=== PATIENT | female | born 1935 | race Caucasian/White ===

== ENCOUNTER 2017-08-01 07:52 | Day surgery (SDC) | payer MEDICARE, BC ==
[2017-08-01] MEDS ORDERED: PROPOFOL 10 MG/ML VIAL IV ONE (07:53)
[2017-08-01] MEDS ORDERED: LIDOCAINE 1% MDV (10MG/ML) 20ML VIAL SQ ONE (07:53)
--- NOTE | 2017-08-04 09:51 | Operative Note ---
DATE OF SURGERY: 08/01/2017 OPERATION: ESOPHAGOGASTRODUODENOSCOPY with Savary guidewire dilatation. INDICATION: Recurrent dysphagia. 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 She did have dilatation in the past, approximately 2 years ago, which she claimed offered significant improvement in her dysphagia. For this reason, a repeat endoscopy is being performed. ANESTHESIA: Intravenous sedation was administered by the Department of Anesthesiology and included Diprivan titrated to effect. PROCEDURE: Following informed consent from this alert individual, including a discussion of the risks and benefits of the procedure and an opportunity for the patient to ask questions, the patient was in the left lateral decubitus position. The Olympus [id number] video endoscope was inserted into the esophagus without resistance. The esophageal mucosa throughout appeared normal. The luminal diameter was fairly normal as well. The squamocolumnar junction was smooth and well defined but it was approximately 2 cm above the diaphragmatic hiatus, suggesting a small hiatal hernia. The stomach was entered and found to be unremarkable. The pylorus was patent. The duodenal bulb, sweep and descending duodenum were examined in a serial fashion and found to be normal. The endoscope was then drawn back into the body of the stomach. Retroflexion accomplished following air insufflation again revealed hiatal hernia. The endoscope was straightened and withdrawn back to the esophagus. Again, no mucosal abnormalities were detected. The endoscope was advanced into the antrum where a Savary guidewire was placed. A #15 Savary dilator was advanced over the guidewire with slight resistance in the cervical region of the esophagus only. Endoscopic reevaluation failed to demonstrate any trauma. The endoscope was then withdrawn. The patient tolerated the procedure well and was returned to the recovery area in stable condition. IMPRESSION: 1. A 2 cm hiatal hernia. 2. Status post dilation with #15 Savary dilator with minimal resistance in the cervical esophageal region only. RECOMMENDATION: The patient will be following up with Dr. Yusuf. I will be happy to see her again in the future as needed. CC: Zuleima ADAMS
== END 2017-08-01 09:47 | disposition home or self-care (01) ==
LOC: HOP 07:52
PROVIDERS: ATTEND Internal Medicine Gastroenterology
DX: R13.10 Dysphagia, unspecified (principal); K44.9 Diaphragmatic hernia without obstruction or gangrene

== ENCOUNTER 2018-12-17 08:45 | Emergency (ER) | payer MEDICARE, BC ==
[2018-12-17] MEDS ORDERED: 0.9 % SODIUM CHLORIDE 1,000 ML BAG IV ONE (08:51)
[2018-12-17] MEDS ORDERED: ONDANSETRON HCL IV 4 MG/2 ML VIAL IV ONE (08:51)
--- NOTE | 2018-12-17 09:02 | Emergency Department Record ---
History of Present Illness - General Chief complaint: Nausea, Vomiting, Diarrhea Stated complaint: DIARRHEA/NASEAUS Time Seen by Provider: 12/17/18 08:49 Source: Patient, Family Mode of Arrival: Ambulatory Limitations: No limitations - History of Present Illness Initial comments: 83 yo female presents with abrupt onset of diarrhea at 3am. She reports n umerous watery, non bloody bowel movements since then. No fevers. She reports feeling chills. She has some associated nausea without vomiting. No recent illness. No recent antibiotics. No known exposures to others that are having similar symptoms. She lives alone. She reports similar symptoms with UTI in the past. She has been having some frequency with urination. PCP Hankenson. KLEIN complaint: Diarrhea, Nausea, Vomiting -: Hour(s) Description of Vomiting: Watery Description of Diarrhea: Water Location: Diffuse (mild, crampy) Radiation: Other (diffuse) Consistency: Constant Improves with: None Worsens with: Eating Context: Other Associated Symptoms: Loss of appetite, Other (chilled) - Related Data Allergies Allergy/AdvReac Type Severity Reaction Status Date / Time meperidine HCl [From Demerol] Allergy Severe NAUSEA AND Verified 12/17/18 08:48 VOMITING potassium clavulanate Allergy Severe DIARRHEA Verified 12/17/18 08:48 [From Augmentin] amoxicillin trihydrate AdvReac Intermediate DIARRHEA Verified 12/17/18 08:48 [From Augmentin] Review of Systems Constitutional: Reports: Chills, Weakness. Denies: Fever, Malaise Eyes: Denies: Eye discharge ENT: Denies: Congestion, Throat pain Respiratory: Denies: Cough, Dyspnea, Hemoptysis, Wheezes Cardiovascular: Denies: Chest pain, Palpitations, Syncope Endocrine: Denies: Fatigue Gastrointestinal: Reports: Abdominal pain (cramps), Diarrhea, Nausea. Denies: Constipation, Hematemesis, Hematochezia, Melena, Vomiting Genitourinary: Denies: Dysuria, Urgency Musculoskeletal: Denies: Arthralgia Skin: Denies: Bruising, Change in color, Rash Neurological: Denies: Headache, Numbness, Weakness Psychiatric: Denies: Anxiety Hematological/Lymphatic: Denies: Easy bleeding, Easy bruising Past Medical History - SOCIAL HISTORY Smoking Status: Never smoker - RESPIRATORY Hx Respiratory Disorders: Yes Hx Pneumonia: Yes Comment:: denies cough or c/o - CARDIOVASCULAR Hx Cardio Disorders: Yes Hx Abnormal EKG: Yes (heart murmur) Hx Hypertension: Yes (just last 5-6 months rx) - NEURO Hx Neuropathy: Yes (tingling rt foot) - GI Comment:: dysphagia-had dilation 04/2015 - Hx Genitourinary Disorders: No - ENDOCRINE Hx Endocrine Disorders: Yes 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 negative: Conjunctival injection, Scleral i cterus - ENT ENT exam: Normal exam, Mucous membranes moist Ear exam: Normal external inspection Nasal Exam: Normal inspection Mouth exam: Normal external inspection - Neck Neck exam: Normal inspection - Respiratory Respiratory exam: Normal lung sounds bilaterally. negative: Decreased breath sounds, Respiratory distress, Rhonchi, Stridor, Wheezes - Cardiovascular Cardiovascular Exam: Regular rate, Normal rhythm, Normal heart sounds Peripheral Pulses: 2+: Radial (R), Radial (L) - GI/Abdominal GI/Abdominal exam: Soft. negative: Distended, Guarding, Rebound, Rigid, Tenderness (very soft abdomen) - Extremities Extremities exam: Normal inspection. negative: Calf tenderness, Pedal edema, Tenderness - Back Back exam: Denies: CVA tenderness (R), CVA tenderness (L) - Neurological Neurological exam: Alert, Oriented X3 - Psychiatric Psychiatric exam: Normal affect, Normal mood - Skin Skin exam: Dry, Intact, Normal color, Warm Course Vitals reviewed No significant abnormalities - Reevaluation(s) Reevaluation #1: 12/17/18 09:30 The CBC was reviewed WBC is 15. 12/17/18 09:37 The Lipase is normal The CMP was reviewed The BUN is 24 with CR of 1.0 12/17/18 09:40 On recheck the patient states she is doing better. The nausea has resolved. She requests ice chips. We discussed the labs to this point. She will provide a UA. 12/17/18 10:03 UA reviewed. N-, LE +, RBC 21-35, WBC TNTC, Few bacteria 12/17/18 10:07 She is doing better but still has mild tenderness lower abdomen CT ordered given elevated WBC, age, and tenderness Rocephin ordered for possible UTI 12/17/18 11:[address] scan was reviewed. L obstructing uropathy secondary to calcification of the left UPJ with complicating left acute emphysematous pyonephritis. Urology on-call will be paged 12/17/18 11:[address] Gamboa of urology. He requests transfer to [facility] for further care. 12/17/18 12:02 Dr Mendes of accepts the transfer Medical Decision Making - Lab Data Result diagrams: 12/17/18 09:08 12/17/18 09:08 Disposition Disposition: Transfer Clinical Impression: Emphysematous pyelonephritis of left kidney Diarrhea Qualifiers: Diarrhea type: unspecified type Qualified Code(s): R19.7 - Diarrhea, unspecified Urinary tract infection Qualifiers: Urinary tract infection type: site unspecified Hematuria presence: with hematuria Qualified Code(s): N39.0 - Urinary tract infection, site not specified Disposition: Acute Care Hospital Transfer Transfer To: [facility] Reason For Transfer: Obstructed renal stone with infection Accepting Physician: Cinthya Time Discussed w/Accepting Physician: 11:56 Condition: (2) Stable Forms: Patient Portal Access Time of Disposition: 11:56 Quality - Quality Measures Quality Measures: N/A - Blood Pressure Screening Does Patient Have Any of the Following: Active Dx of HTN Blood Pressure Classification: Hypertensive Reading Systolic Measurement: 159 Diastolic Measurement: 67 Screening for High Blood Pressure: Patient Exclusion, Hx of HTN [[id number]]
[2018-12-17 09:16] LABS: ABSOLUTE NEUTROPHIL COUNT 14.53; HEMATOCRIT 37.2 % (35.0-47.0); HEMOGLOBIN 11.8 gm/dl (11.6-16.0); MEAN CELL VOLUME 82.9 fl (81-97); MEAN CORPUSCULAR HEMOGLOBIN 26.3 pg (27-33); MEAN CORPUSCULAR HGB CONC 31.7 g/dl (32-36); MEAN PLATELET VOLUME 9.8 fl (7.4-10.4); PLATELET COUNT 261 K/uL (130-400); RED BLOOD COUNT 4.49 M/uL (3.80-5.40); RED CELL DISTRIBUTION WIDTH 15.4 % (11.5-14.5); WHITE BLOOD COUNT W/O DIFF 15.3 K/uL (4.2-12.2)
[2018-12-17 09:27] LABS: PLATELET ESTIMATE NORMAL (NORMAL)
[2018-12-17 09:30] LABS: BILIRUBIN,TOTAL 0.4 mg/dL (0.2-1.0); TOTAL PROTEIN 7.1 g/dL (6.6-8.7)
[2018-12-17 09:35] LABS: ALB/GLOB RATIO 1.5 (1.1-1.8); ALBUMIN 4.3 g/dL (4.0-5.0)
[2018-12-17 09:53] LABS: URINE APPEARANCE SL CLOUDY; URINE BILIRUBIN NEGATIVE (NEGATIVE); URINE BLOOD MODERATE (NEGATIVE); URINE COLOR YELLOW; URINE GLUCOSE (UA) NEGATIVE (NEGATIVE); URINE KETONE NEGATIVE (NEGATIVE); URINE LEUKOCYTE ESTERASE LARGE (NEGATIVE); URINE NITRITE NEGATIVE (NEGATIVE); URINE UROBILINOGEN 0.2 E.U./dL (0.20 - 1.00)
[2018-12-17 09:59] LABS: URINE BACTERIA FEW; URINE EPITHELIAL CELLS 0 - 2 (FEW); URINE RBC 21 - 35 (NONE SEEN)
[2018-12-17] MEDS ORDERED: CEFTRIAXONE 1GM/50ML BAG 1 GM/50 ML BAG IVPB ONE (10:08)
--- NOTE | 2018-12-17 11:36 | CT SCAN REPORT ---
EXAMINATION: CT Abdomen and Pelvis with IV Contrast EXAM DATE: 12/17/2018 11:15 AM TECHNIQUE: CT imaging of the abdomen and pelvis was performed with intravenous contrast. Coronal and sagittal images were reconstructed. IV Contrast: The amount and type of contrast are recorded in the medical record. INDICATION: lower abdominal pain, diarrhea, dysuria COMPARISON: None ENCOUNTER: Not applicable CT ABDOMEN AND PELVIS FINDINGS: Lung Bases: Mild to moderate bibasilar dependent atelectasis. Hepatobiliary: The liver has a normal size with a smooth surface. The hepatic and portal veins appear patent. There is no biliary dilatation and the gallbladder is unremarkable. Pancreas: The pancreas is normal. Spleen: The spleen is not enlarged. Adrenals: The adrenal glands are normal. Kidneys, Ureters, & Bladder: There is moderate left hydronephrosis. There is some gas within the left central renal collecting system. There is enhancement of the left uroepithelial lining. There appear s to be an obstructing calculus at the left ureteropelvic junction which measures 7 mm. There is mode rate left perinephric stranding. Features are consistent with left acute emphysematous pyonephrosis. There is delayed contrast excretion from the left kidney. There is minimal heterogeneity of left chetan al parenchymal enhancement compatible with acute pyelonephritis. Unremarkable right kidney and right ureter. Small amount of gas within the urinary bladder. Otherwise unremarkable bladder. Gastrointestinal: The stomach and small bowel are normal with no obstruction or inflammation. The beverly endix is normal. There is diverticular disease involving primarily the left colon including the sigm oid segment with no associated inflammation. The large bowel is otherwise unremarkable. Reproductive Organs: Unremarkable Lymphatic System: There is no adenopathy within the abdomen or pelvis. Vasculature: Abdominal aorta has a normal caliber with moderate atherosclerotic plaque. There is mil d atherosclerotic plaque at the origins of the mesenteric vessels with no evidence for a significant narrowing. The mesenteric veins are normal. Peritoneum: No free fluid, free air, or inflammation Abdominal Wall & Musculoskeletal: No suspicious bone lesions. The orange significant findings protocol was initiated at 12/17/2018 11:33 AM. Left acute emphysemat ous pyonephrosis. IMPRESSION: 1. Left obstructive uropathy secondary to calcification at the left ureteropelvic junction with compl icating left acute emphysematous pyonephrosis. 2. Severe diverticulosis involving the sigmoid colon. Dictated by: Jimmy Landrum DO on 12/17/2018 11:25 AM. .
[2018-12-17] MEDS ORDERED: 0.9 % SODIUM CHLORIDE 1000ML 1,000 ML IV ONE (11:49)
[2018-12-17] MEDS ORDERED: ACETAMINOPHEN 1,000 MG/100 ML BTL IVPB ONE (11:58)
== END 2018-12-17 13:41 | disposition short-term general hospital (02) ==
LOC: ER 08:45
DX: N13.6 Pyonephrosis (principal); N13.0 Hydronephrosis with ureteropelvic junction obstruction; N39.0 Urinary tract infection, site not specified; R11.2 Nausea with vomiting, unspecified; R19.7 Diarrhea, unspecified; I10 Essential (primary) hypertension
CPT/HCPCS: 99285 ×2; 96365; 96375; 83690; 80053; 81001; 85027; 74177; Q9967; J2405; J0696; J7030